=== PATIENT | female | born 1980 | race Caucasian/White ===

== ENCOUNTER 2016-06-21 10:38 | Emergency (ER) | payer OTHER ==
[2016-06-21 10:49] VITALS: RESP 16
--- NOTE | 2016-06-21 11:45 | UCPHY ---
H & P Time Seen by Provider: 06/21/16 10:55 Patient Type: Established HPI/ROS: 35-year-old female jammed her finger against a dog's head while at work Review of systems General no fever no chills no weakness HEENT no eye pain no eye discharge. No eye redness, no sore throat Respiratory no cough, no shortness of breath Cardiac no chest pain, no peripheral edema GI no abdominal pain, no diarrhea, no constipation, no nausea, no vomiting no flank pain, no hematuria, no dysuria Musculoskeletal no myalgias, positive joint pain Heme no easy bruising, no easy bleeding Endo no polyuria, no polydipsia Skin no rashes, no pruritus Neuro no syncope, no dizziness, no headaches Psych is no suicidal ideation, no homicidal ideation Past Medical/Surgical History: Noncontributory Social History: Denies excessive alcohol or drug use Smoking Status: Former smoker Physical Exam: 35-year-old female Alert and oriented in no acute distress nontoxic appearance, afebrile Atraumatic normocephalic Neck no JVD Lungs clear to auscultation, no respiratory distress Heart regular rate and rhythm Extremities no cyanosis clubbing edema Left hand with mild tenderness palpation at 2nd and 3rd MCP no swelling full range of motion good capillary refill, able to make a fist Constitutional: Initial Vital Signs Temperature (C) 36.7 C 06/21/16 10:47 Heart Rate 82 06/21/16 10:47 Respiratory Rate 16 06/21/16 10:47 Blood Pressure 136/95 H 06/21/16 10:47 O2 Sat (%) 98 06/21/16 10:47 O2 Delivery Mode Room Air Allergies/Adverse Reactions: Penicillins Allergy (Unknown, Verified 06/21/16 10:50) Unknown Home Medications: Medication Instructions Recorded NK [No Known Home Meds] 06/21/16 Medical Decision Making - Diagnostics Imaging: X-ray negative ED Course/Re-evaluation: Patient seen and evaluated after jamming her fingers on the dogs add X-ray negative Impression Left hand contusion and sprain Plan Rest ice compression elevation Follow-up PCP Departure - Departure Disposition: Home, Routine, Self-Care Clinical Impression: Hand contusion Condition: Good Instructions: Contusion in Adults (ED), Hand Sprain (ED) Additional Instructions: No work restrictions. Please follow up with occupational health for further evaluation. Rest, ice, ibuprofen with food for pain. Referrals: JESSY MARINELLI [Primary Care Provider] - As per Instructions Stand Alone Forms: Work Comp Follow Up - PQRS PQRS Measurement: na
[2016-06-21 11:56] VITALS: BP 136/100; PULSE 79; TEMP 97.9; O2SAT 96
== END 2016-06-21 11:56 | disposition home or self-care (01) ==
LOC: CED 10:38
DX: S60.222A Contusion of left hand, initial encounter (principal); Y99.0 Civilian activity done for income or pay; W22.09XA Striking against other stationary object, initial encounter
CPT/HCPCS: 73130-PO; 99214-PO; G0463-PO